=== PATIENT | male | born 1975 ===

== ENCOUNTER 2016-11-30 05:03 | Emergency (ER) | payer SELFPAY ==
[2016-11-30] MEDS ORDERED: NO HOME MEDICATION XX (05:16)
== END 2016-11-30 05:25 | disposition left against medical advice (07) ==
LOC: EDMED 05:03
DX: S05.02XA Injury of conjunctiva and corneal abrasion without foreign body, left eye, initial encounter (principal); F31.9 Bipolar disorder, unspecified; F17.200 Nicotine dependence, unspecified, uncomplicated; X58.XXXA Exposure to other specified factors, initial encounter